=== PATIENT | female | born 1945 | race Caucasian/White ===

== ENCOUNTER → 2020-08-27 01:31 | Outpatient (CLI) | payer MEDICARE, SELFPAY ==
[2020-08-28 14:52] LABS: SARS-CoV-2 RNA PCR Negative
== END ==
PROVIDERS: PCP Internal Medicine; Visit Provider Internal Medicine Gastroenterology
DX: Z01.812 Encounter for preprocedural laboratory examination (principal); Z20.822 Contact with and (suspected) exposure to COVID-19
CPT/HCPCS: C9803; U0003; U0005

== ENCOUNTER 2020-08-30 02:49 | Day surgery (SDC) | payer MEDICARE, SELFPAY ==
[2020-08-19 14:08] VITALS: BMI 24.9
[2020-08-30 08:20] VITALS: BP 138/83; PULSE 88; RESP 16; TEMP 36.2; O2SAT 100; BMI 23.6
--- NOTE | 2020-08-30 08:26 | P.PNAN_ITS ---
Anes - Initial Pre Proc Eval Procedure: Operation Date: 08/30/20 09:45 Proposed Procedures p Colonoscopy - Rui Cohen MD Date/Time: 08/30/20 08:26 Surgeon: Rui Cohen MD Pre Op Diagnosis: positive cologuard Patient Data Age: 75 Gender: F Height: 1.63 m Weight: 62.3 kg Last Vital Signs Temp 36.2 C L 08/30/20 08:20 Pulse 88 08/30/20 08:20 Resp 16 08/30/20 08:20 BP 138/83 08/30/20 08:20 Pulse Ox 100 08/30/20 08:20 Allergies Allergy/AdvReac Type Severity Reaction Status Date / Time No Known Allergies Allergy Verified 08/30/20 08:18 Home Medications Medication Instructions Recorded Confirmed Type aspirin [Adult Aspirin] 81 mg PO DAILY 08/19/20 08/30/20 History clopidogrel [Plavix] 75 mg PO DAILY 08/19/20 08/30/20 History ezetimibe [Zetia] 10 mg PO DAILY 08/19/20 08/30/20 History nifedipine 30 mg PO DAILY 08/19/20 08/30/20 History Patient hx anesthesia problems: none Family hx anesthesia problems: none FORMERLY [facility], [facility] Past Medical History Medical History (Updated 08/30/20 @ 08:26 by Madi Alexis DO) CAD (coronary artery disease) Hypertension Surgical History Surgical History (Updated 08/29/20 @ 10:04 by Madi Alexis DO) History of coronary artery stent placement x2 History of hysterectomy Social History Social History Smoking packs per day: 1 Smoking cigarettes per day: 20.0 Years smoked: 56 Smoking pack-years: 56.00 Smoking status: Former smoker Tobacco type: cigarettes Substance use type: does not use Living arrangements: with family Gender identity (if verbalized by the patient): Female Spiritual care concerns: No Anes - Eval Final PreProcedure Day of Procedure 08/30/20 08:26 Patient weight: normal Heart: regular rate and rhythm Lungs: clear to auscultation and normal air movement Airway: Mallampati scale class 1 Neurological: alert and oriented Last oral intake: >/= 8 hours ASA classification: III Emergent: no Anesthetic plan: proceed Anesthesia type and monitoring: general GIVS and standard monitoring Informed Consent: The patient's anesthetic plan and its attendant risks and benefits were discussed with the patient/family/POA. Questions were solicited and answers provided to the satisfaction of the patient/family/POA.
[2020-08-30] MEDS: LACTATED RINGERS 1,000 ML 150 ML IV CONT (08:39)
--- NOTE | 2020-08-30 08:54 | WPDGICN ---
Assessment and Plan Assessment and plan (1) Positive colorectal cancer screening using Cologuard test: Code(s): R19.5 - Other fecal abnormalities Status: Acute Assessment and Plan: Because of positive cologuard test colonoscopy will be performed today. Patient has no specific GI symptoms reported. GI Consult Note Consult date/time: 08/30/20 08:54 HPI: Anu Garg is a 75 year old female Presents for screening colonoscopy. Patient recently had positive screening cologuard test. she states that her weight appetite bowel movements are normal. She denies abdominal pain. She has had no bleeding. Family history is noncontributory. She presents today for screening colonoscopy. Review of Systems Review of Systems: All systems reviewed & are unremarkable except as noted in HPI and below PMFSH Past Medical History Medical History (Updated 08/30/20 @ 08:55 by Rui Cohen MD) CAD (coronary artery disease) Hypertension Surgical History Surgical History (Updated 08/29/20 @ 10:04 by Madi Alexis DO) History of coronary artery stent placement x2 History of hysterectomy Social History Social History Smoking packs per day: 1 Smoking cigarettes per day: 20.0 Years smoked: 56 Smoking pack-years: 56.00 Smoking status: Former smoker Tobacco type: cigarettes Substance use type: does not use Living arrangements: with family Gender identity (if verbalized by the patient): Female Spiritual care concerns: No Meds Home Medications and Allergies Home Medications Medication Instructions Recorded Confirmed Type aspirin [Adult Aspirin] 81 mg PO DAILY 08/19/20 08/30/20 History clopidogrel [Plavix] 75 mg PO DAILY 08/19/20 08/30/20 History ezetimibe [Zetia] 10 mg PO DAILY 08/19/20 08/30/20 History nifedipine 30 mg PO DAILY 08/19/20 08/30/20 History Allergies Allergy/AdvReac Type Severity Reaction Status Date / Time No Known Allergies Allergy Verified 08/30/20 08:18 Vital Signs Vital Signs - 24 hr 08/30/20 08:20 Temperature 97.2 F L Pulse Rate 88 Respiratory Rate 16 Blood Pressure 138/83 Pulse Oximetry 100 Exam Narrative: Exam Narrative: Physical exam reveals patient be alert. Vital signs stable. HE EENT exam is unremarkable lungs are clear to auscultation and percussion. Heart is without murmur or extra sounds. Abdominal exam bowel sounds present soft nontender with no hepatosplenomegaly. Digital external rectal exam is normal.
[2020-08-30 09:24] VITALS: BP 84/37; PULSE 67; RESP 18; O2SAT 99
[2020-08-30 09:34] VITALS: BP 84/37; PULSE 62; RESP 17; O2SAT 99
[2020-08-30 09:44] VITALS: BP 89/62; RESP 23; O2SAT 100
== END 2020-08-30 10:00 | disposition home or self-care (01) ==
PROVIDERS: PCP Internal Medicine; Visit Provider Internal Medicine Gastroenterology
PROC: 0DJD8ZZ Inspection of Lower Intestinal Tract, Via Natural or Artificial Opening Endoscopic (ICD-10-PCS; CPT 45378; principal; 2020-08-30 09:45)
DX: Z12.11 Encounter for screening for malignant neoplasm of colon (principal); D12.2 Benign neoplasm of ascending colon; K63.5 Polyp of colon; K57.30 Diverticulosis of large intestine without perforation or abscess without bleeding; K64.8 Other hemorrhoids; R19.5 Other fecal abnormalities; I10 Essential (primary) hypertension; I25.10 Atherosclerotic heart disease of native coronary artery without angina pectoris; Z95.5 Presence of coronary angioplasty implant and graft; Z87.891 Personal history of nicotine dependence; Z79.02 Long term (current) use of antithrombotics/antiplatelets; Z79.82 Long term (current) use of aspirin
CPT/HCPCS: 45385; 88305; J2704; J7120

== ENCOUNTER 2023-01-14 11:09 | Outpatient (CLI) | payer MEDICARE, SELFPAY ==
[2023-01-14 11:41] LABS: Basophils Percent Auto 0.5 % (0.2-1.2); Eosinophils Absolute Auto 0.1 K/mm3 (0-0.3); Eosinophils Percent Auto 0.9 % (0-4.4); Hematocrit 34.9 % (37.0-47.0); Hemoglobin 10.9 g/dL (12.0-15.0); Immature Granulocyte Absolute 0.01 K/mm3 (0.00-0.031); Immature Granulocyte Percent A 0.1 % (0-0.5); Immature Reticulocyte Fraction 6.7 % (3.0-15.9); Lymphocytes Absolute Auto 1.01 K/mm3 (0.9-3.2); Lymphocytes Percent Auto 12.3 % (18.3-44.2); Mean Corpuscular HGB Conc 31.2 g/dl (32-36); Mean Corpuscular Hemoglobin 25.3 pg (26-34); Mean Corpuscular Volume 81.2 fl (80-100); Mean Platelet Volume 9.4 fl (7.4-10.4); Monocytes Absolute Auto 0.6 K/mm3 (0.1-0.6); Monocytes Percent Auto 6.7 % (2.6-8.5); Neutrophils Absolute Auto 6.5 K/mm3 (1.3-6.7); Neutrophils Percent Auto 79.5 % (45.5-73.1); Platelet Count Result 365 k/mm3 (150-375); Red Cell Distribution Width 15.8 % (11.5-14.5); Reticulocyte Hemoglobin Conten 28.4 pg (28.2-35.7); Reticulocyte Percent 0.79 % (0.7-4.3); Reticulocytes Absolute 0.03 M/mm3 (0.02-0.1); White Blood Count 8.2 K/mm3 (4.5-10.0)
[2023-01-14 12:08] LABS: Anion Gap 6 mmol/L (8-16); Blood Urea Nitrogen 16 mg/dL (7-17); Carbon Dioxide 32 mmol/L (22-30); Chloride 96 mmol/L (98-107); Potassium 3.6 mmol/L (3.4-5.0); Sodium 134 mmol/L (137-145)
[2023-01-14 12:09] LABS: Alanine Aminotransferase 16 U/L (6-35); Albumin Level 4.5 g/dL (3.5-5.1); Alkaline Phosphatase 75 U/L (38-126); Aspartate Amino Transferase 22 U/L (14-36); Bilirubin,Total 0.4 mg/dL (0.2-1.3); Calcium 8.8 mg/dL (8.4-10.2); Estimated Glomerular Filt Rate 54; Glucose 118 mg/dL (65-110)
[2023-01-14 13:20] LABS: Folic Acid > 20.0 ng/mL (2.76->20)
[2023-01-14 16:30] LABS: Iron 44 ug/dL (37-170)
[2023-01-14 16:40] LABS: Percent Iron Saturation 13 % (20-50)
[2023-01-16 15:58] LABS: Albumin 3.9 g/dL (3.8-4.8); Alpha 1 Globulin 0.5 g/dL (0.2-0.3); Alpha 2 Globulin 1.1 g/dL (0.5-0.9); Beta 1 Globulin 0.5 g/dL (0.4-0.6); Gamma Globulin 1.2 g/dL (0.8-1.7); Protein, Total 7.5 g/dL (6.1-8.1)
[2023-01-17 06:01] LABS: Methylmalonic Acid 262 nmol/L (87-318)
[2023-01-18 17:46] LABS: Soluble Transferrin Receptor 1.46 mg/L (0.76-1.76)
== END 2023-01-14 11:10 | disposition home or self-care (01) ==
PROVIDERS: PCP Internal Medicine; Visit Provider Internal Medicine Hematology & Oncology
DX: D64.9 Anemia, unspecified (principal)
CPT/HCPCS: 36415; 80053; 82607; 82728; 82746; 83540; 83550; 83921; 84155; 84165; 84238; 85025; 85046

== ENCOUNTER 2023-05-08 10:42 | Outpatient (CLI) | payer MEDICARE, SELFPAY ==
[2023-05-08 10:56] LABS: Basophils Percent Auto 0.6 % (0.2-1.2); Eosinophils Absolute Auto 0.1 K/mm3 (0-0.3); Eosinophils Percent Auto 1.8 % (0-4.4); Hematocrit 36.6 % (37.0-47.0); Immature Granulocyte Absolute 0.01 K/mm3 (0.00-0.031); Immature Granulocyte Percent A 0.1 % (0-0.5); Mean Corpuscular HGB Conc 32.8 g/dl (32-36); Mean Corpuscular Hemoglobin 29.6 pg (26-34); Mean Corpuscular Volume 90.1 fl (80-100); Mean Platelet Volume 9.1 fl (7.4-10.4); Monocytes Absolute Auto 0.6 K/mm3 (0.1-0.6); Monocytes Percent Auto 9.2 % (2.6-8.5); Neutrophils Absolute Auto 4.5 K/mm3 (1.3-6.7); Neutrophils Percent Auto 66.3 % (45.5-73.1); Platelet Count Result 241 k/mm3 (150-375); Red Blood Count 4.06 M/mm3 (4.2-5.4); Red Cell Distribution Width 15.2 % (11.5-14.5); White Blood Count 6.8 K/mm3 (4.5-10.0)
[2023-05-08 16:48] LABS: Iron 80 ug/dL (37-170)
[2023-05-08 17:10] LABS: Percent Iron Saturation 26 % (20-50)
== END 2023-05-08 10:43 | disposition home or self-care (01) ==
LOC: ANHLAB 10:44
PROVIDERS: PCP Internal Medicine; Visit Provider Internal Medicine Hematology & Oncology
DX: D64.9 Anemia, unspecified (principal)
CPT/HCPCS: 36415; 82728; 83540; 83550; 85025

== ENCOUNTER 2023-09-12 03:32 | Inpatient (IN) | payer MEDICARE, SELFPAY ==
[2023-09-12] VITALS (51 sets, daily range): BP systolic 68–117; BP diastolic 41–80; PULSE 71–125; RESP 12–36; TEMP 35.5–36.7; O2SAT 82–100; BMI 23.8
--- NOTE | 2023-09-12 | ECHO_ITS ---
Patient Info Name: Anu Garg Age: 78 years : 1945 Gender: Female Ht: 64 in Wt: 129 lbs BSA: 1.63 m2 HR: 88 bpm BP: 98 / 67 mmHg Heart Rhythm: Sinus Rhythm Technical Quality: Good Exam Date: 09/12/2023 9:45 AM Exam Location: Echo Lab Patient Status: Inpatient Admit Date: 09/12/2023 Staff Ordering Physician: Fareed Thapa MD Lead Clinical Research Coordinator: Kirill Stern RDCS Attending Provider: Fareed Thapa MD Exam Type: CA echo dop color flow w con Study Info Indications - chf Complete two-dimensional, color flow and Doppler transthoracic echocardiogram is performed with contrast to opacify the left ventricle and to improve the deliniation of the left ventricle endocardial borders. Contrast/Agitated Saline Contrast/Ag. Saline: Definity Amount: 4.00 ml IV Access Condition: patent with no signs of infiltration Summary 1. Left ventricular chamber dimension is normal. 2. Left ventricular systolic function is moderately reduced, estimated at 30-35%. 3. The left ventricular diastolic function is grade I diastolic dysfunction. 4. Right ventricular systolic function is normal. 5. There is moderate mitral valve regurgitation. 6. There is trivial pericardial effusion. Left Ventricle Left ventricular chamber dimension is normal. Left ventricular systolic function is moderately reduced, estimated at 30-35%. There is no increased left ventricular wall thickness. The left ventricular diastolic function is grade I diastolic dysfunction. Right Ventricle Right ventricular chamber dimension is normal. Right ventricular systolic function is normal. Left Atria Left atrial chamber dimension is normal. Right Atria Right atrial chamber dimension is normal. Atrial Septum Intact interatrial septum visualized by color flow imaging. Aortic Valve The aortic valve is not well visualized. There is no aortic valve stenosis. There is no aortic valve regurgitation. There is mild aortic valve calcification. Pulmonic Valve The pulmonic valve is not well visualized. Mitral Valve There is moderate mitral valve regurgitation. Tricuspid Valve There is trace tricuspid valve regurgitation. Pericardium/Pleural There is trivial pericardial effusion. Inferior Vena Cava Normal inferior vena cava with >50% collapse upon inspiration consistent with normal right atrial pressure, 3 mmHg. Aorta The aortic root size at the sinus of Valsalva is normal. Left Ventricular Outflow Tract Name Value Normal LVOT 2D LVOT Diameter 2.00 cm LVOT Doppler LVOT Peak Gradient 6 mmHg LVOT Mean Gradient 3 mmHg LVOT VTI 19.74 cm LVOT VTI/AV VTI Ratio 0.99 LVOT Stroke Volume 61.94 ml LVOT CO 5.79 l/min LVOT CI 3.55 L/min/m2 Pulmonic Valve Name Value Normal PV Doppler
--- NOTE | ~2023-09-12 | XR_ITS ---
Portable chest x-ray Comparison: None Clinical History: Shortness of breath Findings: There is mild haziness and interstitial prominence in the lungs, worse at the right lung b ase. Calcified left upper lobe granuloma present. Cardiomediastinal silhouette is unremarkable. Bone s and soft tissues are unremarkable. Impression: Probable mild alveolar and interstitial pulmonary edema. Correlate for COPD and/or other chronic inte rstitial disease. Reviewed, dictated and finalized at location . Impression: Probable mild alveolar and interstitial pulmonary edema. Correlate for COPD and /or other chronic interstitial disease.
--- NOTE | ~2023-09-12 | US_ITS ---
Renal-Bladder ultrasound Clinical History: Elevated creatinine Technique: Real-time sonographic imaging of the kidneys and urinary bladder was performed. Findings: The right kidney measures 7.9 cm in length and the left kidney measures 7.2 cm. There is no hydronephrosis or renal calculus identified. Renal cortical echogenicity is within normal limits. No renal mass lesion is identified. The urinary bladder is moderately distended at the time of this exam. No intraluminal echoes are iden tified. No abnormal wall thickening is seen. Bladder volume is 251 mL. Bilateral pleural effusions are noted. Impression: Unremarkable ultrasound of the kidneys and urinary bladder. Bilateral pleural effusions noted. Reviewed, dictated and finalized at location . Impression: Unremarkable ultrasound of the kidneys and urinary bladder. Bilateral pleural effusions noted.
--- NOTE | ~2023-09-12 | XR_ITS ---
Portable chest x-ray Comparison: 09/12/2023 Clinical History: Shortness of breath Findings: There is mild bilateral pulmonary edema pattern. No definite pleural effusion. Cardiomedi astinal silhouette is stable. Bones and soft tissues are unremarkable. Impression: Mild probable bilateral pulmonary edema pattern. Correlate for infection. Reviewed, dictated and finalized at [facility]. Impression: Mild probable bilateral pulmonary edema pattern. Correlate for infection.
--- NOTE | ~2023-09-12 | XR_ITS ---
EXAMINATION: XR chest 1V portable DATE: 09/14/2023 08:40 INDICATION: Chest pain. Shortness of breath. Cough. TECHNIQUE: A single frontal view of the chest was obtained. COMPARISON: Chest single view 09/13/2023, 09/12/23 FINDINGS: A calcified left lung nodule and calcified left hilar lymph nodes are consistent with old g ranulomatous disease. There is a diffuse interstitial pattern in the lungs. There are airspace opacit ies in the perihilar regions. No pleural effusion or pneumothorax. The heart size is normal. IMPRESSION: 1. Worsening diffuse lung disease, likely moderate pulmonary edema. Superimposed pneumonia cannot be excluded. Reviewed, dictated and finalized at location A. IMPRESSION: 1. Worsening diffuse lung disease, likely moderate pulmonary edema. Superimpose d pneumonia cannot be excluded.
--- NOTE | 2023-09-12 03:33 | ECG_ITS ---
SEE SCANNED COPY FOR CONFIRMED REPORT MTDD
[2023-09-12 03:54] LABS: Basophils Absolute Auto 0.1 K/mm3 (0.0-0.1); Basophils Percent Auto 0.5 % (0.2-1.2); Eosinophils Absolute Auto 0.1 K/mm3 (0-0.3); Eosinophils Percent Auto 0.9 % (0-4.4); Hematocrit 37.2 % (37.0-47.0); Hemoglobin 12.4 g/dL (12.0-15.0); Immature Granulocyte Absolute 0.05 K/mm3 (0.00-0.031); Immature Granulocyte Percent A 0.4 % (0-0.5); Lymphocytes Absolute Auto 2.12 K/mm3 (0.9-3.2); Lymphocytes Percent Auto 18.9 % (18.3-44.2); Mean Corpuscular HGB Conc 33.3 g/dl (32-36); Mean Corpuscular Hemoglobin 30.7 pg (26-34); Mean Corpuscular Volume 92.1 fl (80-100); Mean Platelet Volume 10.1 fl (7.4-10.4); Monocytes Absolute Auto 0.9 K/mm3 (0.1-0.6); Monocytes Percent Auto 7.6 % (2.6-8.5); Neutrophils Absolute Auto 8.1 K/mm3 (1.3-6.7); Neutrophils Percent Auto 71.7 % (45.5-73.1); Platelet Count Result 308 k/mm3 (150-375); Red Blood Count 4.04 M/mm3 (4.2-5.4); Red Cell Distribution Width 13.3 % (11.5-14.5); White Blood Count 11.2 K/mm3 (4.5-10.0)
--- NOTE | 2023-09-12 03:54 | ED.GENADULT ---
HPI - General Adult General Chief complaint: Shortness of Breath/Dyspnea Stated complaint: SOB Time Seen by Provider: 09/12/23 03:53 History of Present Illness HPI narrative: Patient is a 78-year-old female who presents to the emergency department this evening complaining of shortness of breath. Patient states that she woke up sleep and was short of breath. When patient went to bed earlier this evening, she was feeling. Patient admits that she has been suffering from a cough for the past week productive of sputum. Denies any fevers or chills at home. She denies any chest pain, nausea vomiting, any abdominal pain or any urinary symptoms. Patient denies any history of asthma or COPD, denies any history of CHF and denies any sick contacts at home. No additional symptoms or concerns at this time. Related Data Home Medications Medication Instructions Recorded Confirmed aspirin 81 mg tablet 81 mg PO DAILY 08/19/20 09/12/23 clopidogrel 75 mg tablet (Plavix) 75 mg PO DAILY 08/19/20 09/12/23 ezetimibe 10 mg tablet (Zetia) 10 mg PO DAILY 08/19/20 09/12/23 nifedipine 30 mg tablet,extended 30 mg PO DAILY 08/19/20 09/12/23 release buspirone 5 mg tablet 2 mg PO QAM AND QHS 09/12/23 09/12/23 ergocalciferol (vitamin D2) 1,250 09/12/23 mcg (50,000 unit) capsule famotidine 20 mg tablet 20 mg PO DAILY 09/12/23 09/12/23 Allergies Allergy/AdvReac Type Severity Reaction Status Date / Time [id number] Reductase Allergy Rash Verified 09/12/23 03:50 Inhibitor Review of Systems Review of Systems: All systems are reviewed and are negative unless stated otherwise in the HPI. [facility] Past Medical History Medical History (Updated 09/12/23 @ 06:15 by Fareed Thapa MD) CAD (coronary artery disease) Hypertension Surgical History Surgical History History of coronary artery stent placement x2 History of hysterectomy Social History Social History Smoking packs per day: 1 Smoking cigarettes per day: 20.0 Years smoked: 56 Smoking pack-years: 56.00 Smoking status: Former smoker Tobacco type: cigarettes Substance use type: does not use Living arrangements: with family Gender identity (if verbalized by the patient): Female Spiritual care concerns: No Exam Narrative: General: Alert, awake, afebrile, in no acute distress. HEENT: PERRL, no rhinorrhea, no post nasal drip, oropharynx clear. Neck: Trachea midline, no JVD, no lymphadenopathy. Cardiovascular: Regular rate and rhythm, no murmurs, rubs or gallops, no peripheral edema. Respiratory: Diffuse bilateral expiratory wheezing, no wheezing, no rhonchi, no rubs, no respiratory distress. Abdomen: Soft, nontender, nondistended, no rebound, no guarding, no peritoneal signs. Musculoskeletal: No joint swelling or deformity, normal muscle tone. Skin: No rashes or petechia, no signs of infection. Neurological: Alert and oriented to person, place, and time. Follows all commands. No focal deficits, speech is clear and fluent. Course Vital Signs Vital signs: Vital Signs Temperature 97.5 F L 09/12/23 03:33 Pulse Rate 94 09/12/23 03:33 Respiratory Rate 19 09/12/23 03:33 Blood Pressure 96/55 L 09/12/23 03:33 Pulse Oximetry 95 09/12/23 03:33 Oxygen Delivery Room Air 09/12/23 03:33 Temperature 97.5 F L 09/12/23 03:33 Pulse Rate 88 09/12/23 05:52 Respiratory Rate 15 09/12/23 05:52 Blood Pressure 98/67 L 09/12/23 05:52 Pulse Oximetry 99 09/12/23 05:52 Oxygen Delivery Nasal Cannula 09/12/23 04:19 Oxygen Flow Rate 3 09/12/23 04:19 Medical Decision Making MDM Narrative Medical decision making narrative: The patient was evaluated by myself in the emergency department. History is obtained from patient who is an independent historian and physical exam was performed. External medical records were reviewe
[2023-09-12] MEDS: IPRATROPIUM 0.5 MG/ALBUTEROL SULFATE 2.5 MG AMPUL.NEB 3 ML INHALATION (04:06)
[2023-09-12 04:35] LABS: Lactic Acid Reflex 1.2 mmol/L (0.7-2.0)
[2023-09-12 04:40] LABS: NT Pro B Type Natriuretic Pept 7040 pg/mL (19.9-100)
[2023-09-12 05:19] LABS: Troponin I 0.792 ng/mL (0.000-0.034)
[2023-09-12 05:29] LABS: Influenza A QL RT-PCR Negative (Negative); Influenza B QL RT-PCR Negative (Negative); RSV RNA, RT-PCR Negative (Negative); SARS-CoV-2 RNA PCR Negative (Negative)
[2023-09-12 05:41] LABS: Alanine Aminotransferase 17 U/L (6-35); Albumin Level 4.1 g/dL (3.5-5.1); Alkaline Phosphatase 71 U/L (38-126); Anion Gap 7 mmol/L (4-12); Aspartate Amino Transferase 31 U/L (14-36); Bilirubin,Total 0.5 mg/dL (0.2-1.3); Blood Urea Nitrogen 19 mg/dL (7-17); Calcium 8.6 mg/dL (8.4-10.2); Carbon Dioxide 27 mmol/L (22-30); Chloride 100 mmol/L (98-107); Estimated CRCL calculation 31 ml/min; Estimated Glomerular Filt Rate 44; Glucose 118 mg/dL (65-110); Potassium 4.5 mmol/L (3.4-5.0); Sodium 134 mmol/L (137-145)
[2023-09-12] MEDS: AZITHROMYCIN 500 MG/NS 250 ML 500 MG/250 ML BAG 250 MG IVPB (05:52)
--- NOTE | 2023-09-12 06:14 | PM.IMHP ---
H&P: HPI History of Present Illness Date/Time: 09/12/23 06:14 Chief Complaint: sob cough Narrative: patient is 78-year-old female with history of Chronic bronchitis/ CAD / hypertension comes to the hospital complaining of shortness of breath productive cough yellow-green phlegm. Patient states she had not been very mobile the last few days denies any history of hemoptysis no chest pain no vomiting no diarrhea . Patient does have history of smoking but states she has never been diagnosed with COPD. Patient appears comfortable right now except dry cough. Patient was also seen and evaluated her initial diagnosis of possible now use and heart failure started on Rocephin Zithromax. 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 [place] Review of Systems Review of Systems: All systems reviewed & are unremarkable except as noted in HPI and below PMFSH Past Medical History Medical History (Updated 09/12/23 @ 06:15 by Fareed Thapa MD) CAD (coronary artery disease) Hypertension Surgical History Surgical History History of coronary artery stent placement x2 History of hysterectomy Social History Social History Smoking packs per day: 1 Smoking cigarettes per day: 20.0 Years smoked: 56 Smoking pack-years: 56.00 Smoking status: Former smoker Tobacco type: cigarettes Substance use type: does not use Living arrangements: with family Gender identity (if verbalized by the patient): Female Spiritual care concerns: No Meds Home Medications and Allergies Home Medications Medication Instructions Recorded Confirmed Type aspirin 81 mg tablet 81 mg PO DAILY 08/19/20 09/12/23 History clopidogrel 75 mg tablet (Plavix) 75 mg PO DAILY 08/19/20 09/12/23 History ezetimibe 10 mg tablet (Zetia) 10 mg PO DAILY 08/19/20 09/12/23 History nifedipine 30 mg tablet,extended 30 mg PO DAILY 08/19/20 09/12/23 History release buspirone 5 mg tablet 2 mg PO QAM AND QHS 09/12/23 09/12/23 History ergocalciferol (vitamin D2) 1,250 09/12/23 History mcg (50,000 unit) capsule famotidine 20 mg tablet 20 mg PO DAILY 09/12/23 09/12/23 History Allergies Allergy/AdvReac Type Severity Reaction Status Date / Time Qolfusa-[id number] Reductase Allergy Rash Verified 09/12/23 03:50 Inhibitor Vital Signs Vital Signs - 24 hr 09/12/23 03:33 09/12/23 03:38 09/12/23 03:44 Temperature 36.4 C L Pulse Rate 94 Respiratory Rate 19 Blood Pressure 96/55 L Pulse Oximetry 95 95 94 Oxygen Delivery Room Air Nasal Cannula Nasal Cannula Oxygen Flow Rate 3 3 09/12/23 03:49 09/12/23 03:50 09/12/23 04:08 Temperature Pulse Rate 84 79 Respiratory Rate 16 Blood Pressure Pulse Oximetry 97 Oxygen Delivery Non-Rebreather Mask Oxygen Flow Rate 10 09/12/23 04:14 09/12/23 04:19 09/12/23 04:19 Temperature Pulse Rate 81 80 Respiratory Rate 14 16 Blood Pressure 96/66 L Pulse Oximetry 100 100 Oxygen Delivery Nasal Cannula Oxygen Flow Rate 3 09/12/23 05:52 Temperature Pulse Rate 88 Respiratory Rate 15 Blood Pressure 98/67 L Pulse Oximetry 99 Oxygen Delivery Oxygen Flow Rate Exam Narrative: GENERAL: Well appearing, no acute distress. HEAD: Normocephalic, atraumatic. NECK: Supple. No adenopathy, no masses. RESPIRATORY: respirations nonlabored. , has rales, wheezing. CARDIOVASCULAR: Regular rate and rhythm without murmurs, . Peripheral pulses 2+ and equal bilaterally. ABDOMINAL: Soft, nontender, nondistended, no hepatosplenomegaly. Normoactive BS. MUSCULOSKELETAL: no Epigastric and no hypochondrial tenderness SKIN: Warm, dry, NEURO: A&O X3. Moves all extremities H&P: Results Labs Labs: Short CBC 09/12/23 Range/Units 03:48 WBC 11.2 H (4.5-10.0) K/mm3 Hgb 12.4
--- NOTE | 2023-09-12 06:47 | PC.NURSE ---
EDP Dr. York made aware of pt low bp readings. EDP instructed this RN to feed pt and reevaluate. Pt feeling nauseated at this time. EDP to put orders for zofran in.
[2023-09-12] MEDS: ONDANSETRON INJ 4 MG/2 ML VIAL IV PUSH (06:52)
--- NOTE | 2023-09-12 07:03 | PC.NURSE ---
This RN called EDP to room for pt low o2 saturations and low bp readings. Pt bp reading 70s/50s. This RN placed pt back on NRB at 10L as pt was 87%on 5L NC. EDP stated she would put in maintenance fluids and additional orders.
[2023-09-12] MEDS: methylPREDNISolone SOD SUCC 40 MG VIAL IV PUSH ×3 (07:08→21:17)
[2023-09-12] MEDS: SODIUM CHLORIDE 0.9% IV 250 ML IV CONT (07:10)
--- NOTE | 2023-09-12 07:11 | PC.NURSE ---
bssr given to dayna esparza at this time. pt on NRB and has fluids infusing at this time. call light within reach and family at bedside.
--- NOTE | 2023-09-12 07:52 | ADMGEN ---
This patient, Anu Garg, was admitted to IMU Room 203-01. Patient/family oriented to hospital policies and general routines including ID bracelet, bed and alarms, visiting hours, pain management, procedures, bathroom and other care routines, personal items, smoking policy, room service/diet, and visiting hours. Information on how to activate the Rapid Response Team has been discussed. Patient/Family are encouraged to report perceived risks to care and to ask questions if they do not understand what they are told or what they should do.
[2023-09-12] MEDS: PERFLUTREN LIPID MICROSPHERES 1.5 ML VIAL DILUTED TO 10 ML TOTAL VOLUME IV PUSH (10:22)
--- NOTE | 2023-09-12 10:22 | IVDEFINITY ---
Prior to administration of IV Definity the patient was educated on the risks and benefits of the imaging enhancing agent including potential adverse side effects. The patient verbalized understanding. Allergies were verified. No exclusion criteria were identified and at least one of the following inclusion criteria were met: 1) physician request, 2) patient technically difficult to image (per the [place] [employer]ocardi[employer] guidelines of two or more segments not discernable within the apical view), or 3) questionable left ventricular function. ?
--- NOTE | 2023-09-12 10:37 | PM.CNCAR ---
Assessment and Plan Assessment and plan (1) Acute hypoxic respiratory failure: Code(s): J96.01 - Acute respiratory failure with hypoxia Status: Acute Assessment and Plan: On BIPAP, wean oxygen as tolerated. (2) Acute pneumonia: Code(s): J18.9 - Pneumonia, unspecified organism Status: Acute Assessment and Plan: On antibiotics as per Hospitalist. (3) Congestive heart failure: Code(s): I50.9 - Heart failure, unspecified Status: Acute Assessment and Plan: We do not have any prior cardiac records, however, patient and family deny any history of heart failure. Please obtain records from [facility]. Echocardiogram ordered and pending. Agree with IV Lasix this morning, will give additional doses as needed. (4) Elevated troponin: Code(s): R79.89 - Other specified abnormal findings of blood chemistry Status: Acute Assessment and Plan: Mildly elevated. In the setting of acute hypoxic respirator failure, hypotension, possible CHF. Likely demand ischemia. Does not appear to be ACS, however, will trend troponins. Echocardiogram ordered and pending. (5) CAD (coronary artery disease): Code(s): I25.10 - Atherosclerotic heart disease of [place] coronary artery without angina pectoris Status: Acute Assessment and Plan: Continue ASA, Plavix. Please obtain records from Dr. Yee's office. History of Present Illness History of Present Illness Consult date/time: 09/12/23 10:37 Requesting physician: Sylvain York MD Consult reason: Other (Pulmonary edema, NSTEMI) Reason For Visit: Pulmonary Edema, STEMI Narrative: This is a 78 year old female with coronary artery disease s/p stents 5-6 years ago, hypertension, tobacco dependence who presented with shortness of breath. Patient states she woke up with shortness of breath. Has been having a cough with productive sputum over the past few days. Endorses orthopnea over the past four days as well. No chest pain. 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 In the ER, she was noted to be in acute hypoxic respiratory failure and placed on supplemental oxygen via nasal cannula with improvement. Was noted to be hypotensive, received IVF. This morning, patient had respiratory distress, and was placed on BIPAP, given IV Lasix, and Solumedrol with improvement. She feels better now at the time of my evaluation. Of note, patient smokes 1/2PPD for the past 56 years. Has not been diagnosed with COPD yet. Workup shows: WBC 11.2 SCr of 0.792 NT pro BNP of 7,040 TSH is elevated at 14.3. CXR with mild alveolar and interstitial pulmonary edema. EKG shows sinus rhythm with nonspecific STTW abnormalities. No prior EKG available for comparison. Review of Systems Review of Systems: All systems reviewed & are unremarkable except as noted in HPI and below (HPI) [facility] Past Medical History Medical History CAD (coronary artery disease) Hypertension Surgical History Surgical History History of coronary artery stent placement x2 History of hysterectomy Social History Social History Smoking packs per day: 1 Smoking cigarettes per day: 20.0 Years smoked: 56 Smoking pack-years: 56.00 Smoking status: Former smoker Tobacco type: cigarettes Substance use type: does not use Living arrangements: with family Gender identity (if verbalized by the patient): Female Spiritual care concerns: No Meds Home Medications and Allergies Home Medications Medication Instructions Recorded Confirmed Type aspirin 81 mg tablet 81 mg PO DAILY 08/19/20 09/12/23 History clopidogrel 75 mg tablet (Plavix) 75 mg PO DAILY 08/19/20 09/12/23 History ezetimibe 10 mg tablet (Zetia) 10 mg PO DAILY 08/19/20 09/12/23 History nifedipine 30 mg tablet,extended 30 mg PO DAILY
[2023-09-12 10:48] LABS: Free T4 Free Thyroxine Reflex 1.13 ng/dL (0.78-2.19)
[2023-09-12] MEDS: ENOXAPARIN 40 MG/0.4 ML SYRINGE SUB-Q (10:53)
[2023-09-12] MEDS: methylPREDNISolone SOD SUCC 125 MG VIAL IV PUSH (10:58)
[2023-09-12] MEDS: FUROSEMIDE INJ 40 MG/4 ML VIAL IV PUSH (10:59)
[2023-09-12] MEDS: PANTOPRAZOLE 40 MG TABLET PO (11:00)
--- NOTE | 2023-09-12 11:30 | PCOTNOTE ---
Pt with uptrending troponin at this time. Will hold therapy until more medically approrpiate.
[2023-09-12 11:43] LABS: Total Triiodothyronine (T3) 1.37 NG/ML (0.97-1.69)
--- NOTE | 2023-09-12 12:19 | PM.IMPN ---
Progress Note: A&P Assessment and Plan (1) Congestive heart failure: Code(s): I50.9 - Heart failure, unspecified Status: Acute (2) Acute pneumonia: Code(s): J18.9 - Pneumonia, unspecified organism Status: Acute (3) CAD (coronary artery disease): Code(s): I25.10 - Atherosclerotic heart disease of [place] coronary artery without angina pectoris Status: Acute Plan Acute hypoxic respiratory failure: Respiratory distress This a.m. likely due to pneumonia versus CHF versus COPD exacerbation. Placed on BiPAPFor work of breathing. DuoNeb. Solu-Medrol for COPD exacerbation. Diuresis with Lasix Acute on chronic CHF exacerbation chest x-ray with interstitial edema noted. We will start diuresis with Lasix one-time dose. Diuresis as tolerated. Was hypotensive on admission. BNP of 7000 Hypotension: Lactate was normal. Currently treated for underlying infection particularly with pneumonia Bilateral pneumonia: Ceftriaxone and azithromycin will be continued blood culture were obtained.Cold flu and RSV negative Elevated troponin could be related to ongoing hypoxia CHF possible non-ST elevation [place]. Could be demand ischemia due to poor. Cardiology has been consulted. History of coronary artery disease status post stent to the past COPD undiagnosed prior but long-term history and chest x-ray finding suggestive of this. Possible COPD exacerbation treated with Solu Medrol CKD stage III creatinine 1.2 continue to monitor with diuresis. History of anxiety disorder continue buspirone GERD Hyperlipidemia DVT prophylaxis Lovenox history of hypertension. History of anxiety continue buspirone. History of gastric reflux continue amantadine. History of hyperlipidemia continue Zetia Subjective Date/time seen: 09/12/23 12:19 Interval history: Patient with respiratory distress this a.m. Pulse ox not picking up currently. Feels anxious. Still alert and oriented ?3. Family at bedside and discussed with them. Review of Systems Review of Systems: All systems reviewed & are unremarkable except as noted in HPI and below Exam Narrative: GENERAL: Well appearing, In mild to moderate distress HEAD: Normocephalic, atraumatic. NECK: Supple. No adenopathy, no masses. RESPIRATORY: Labored breathing wheezy and rhonchorous breath sounds.Bilateral rales CARDIOVASCULAR: Tachycardic sinus and telemetry . Peripheral pulses 2+ and equal bilaterally. ABDOMINAL: Soft, nontender, nondistended, no hepatosplenomegaly. Normoactive BS. MUSCULOSKELETAL: no Epigastric and no hypochondrial tenderness SKIN: Warm, dry, NEURO: A&O X3. Moves all extremities Objective Data Vital Signs Vital Signs: Vital Signs - 24 hr 09/12/23 03:33 09/12/23 03:38 09/12/23 03:44 Temperature 97.5 F L Pulse Rate 94 Respiratory Rate 19 Blood Pressure 96/55 L Pulse Oximetry 95 95 94 Oxygen Delivery Room Air Nasal Cannula Nasal Cannula Oxygen Flow Rate 3 3 09/12/23 03:49 09/12/23 03:50 09/12/23 04:08 Temperature Pulse Rate 84 79 Respiratory Rate 16 Blood Pressure Pulse Oximetry 97 Oxygen Delivery Non-Rebreather Mask Oxygen Flow Rate 10 09/12/23 04:14 09/12/23 04:19 09/12/23 04:19 Temperature Pulse Rate 81 80 Respiratory Rate 14 16 Blood Pressure 96/66 L Pulse Oximetry 100 100 Oxygen Delivery Nasal Cannula Oxygen Flow Rate 3 09/12/23 05:52 09/12/23 06:41 09/12/23 06:46 Temperature Pulse Rate 88 105 H 112 H Respiratory Rate 15 16 20 Blood Pressure 98/67 L Pulse Oximetry 99 Oxygen Delivery Oxygen Flow Rate 09/12/23 07:06 09/12/23 03:46 09/12/23 04:01 Temperature Pulse Rate 80 84 Respiratory Rate 12 17 Blood Pressure 98/63 L 94/80 L Pulse Oximetry 97 93 97 Oxygen Delivery Non-Rebreather Mask Oxygen Flow Rate 10 09/12/23 04:16 09/12/23 04:45 09/12/23 05:00 Temperature Pulse Rate 92 84 83 Respiratory Rate 22 H 22 H 21 H Blood Pressure 6
[2023-09-12] MEDS: METOPROLOL SUCCINATE EXT REL 25 MG TABCR PO (13:05)
[2023-09-12] MEDS: IPRATROPIUM BR 0.02% INH SOLN 0.5 MG/2.5 ML VIAL INHALATION ×2 (14:05→20:23)
[2023-09-12] MEDS: LEVALBUTEROL NEB 1.25 MG/3 ML INHALATION ×2 (14:05→20:23)
[2023-09-12] MEDS: WATER FOR IRRIGATION, STERILE 1,000 ML BOTTLE 1000 ML (20:18)
[2023-09-12] MEDS: busPIRone HCL 5 MG TABLET PO (21:17)
[2023-09-13] VITALS (30 sets, daily range): BP systolic 87–107; BP diastolic 46–71; PULSE 65–122; RESP 19–100; TEMP 35.8–36.7; O2SAT 23–100
[2023-09-13] MEDS: IPRATROPIUM BR 0.02% INH SOLN 0.5 MG/2.5 ML VIAL INHALATION ×4 (01:18→20:45)
[2023-09-13] MEDS: LEVALBUTEROL NEB 1.25 MG/3 ML INHALATION ×4 (01:18→20:35)
[2023-09-13 04:14] LABS: Hematocrit 34.7 % (37.0-47.0); Hemoglobin 11.2 g/dL (12.0-15.0); Mean Corpuscular HGB Conc 32.3 g/dl (32-36); Mean Corpuscular Hemoglobin 30.3 pg (26-34); Mean Corpuscular Volume 93.8 fl (80-100); Mean Platelet Volume 10.6 fl (7.4-10.4); Platelet Count Result 302 k/mm3 (150-375); Red Cell Distribution Width 13.3 % (11.5-14.5); White Blood Count 22.9 K/mm3 (4.5-10.0)
[2023-09-13 04:29] LABS: Alanine Aminotransferase 17 U/L (6-35); Albumin Level 3.6 g/dL (3.5-5.1); Alkaline Phosphatase 60 U/L (38-126); Anion Gap 7 mmol/L (4-12); Aspartate Amino Transferase 38 U/L (14-36); Bilirubin,Total 0.4 mg/dL (0.2-1.3); Blood Urea Nitrogen 28 mg/dL (7-17); Calcium 7.9 mg/dL (8.4-10.2); Carbon Dioxide 25 mmol/L (22-30); Chloride 99 mmol/L (98-107); Estimated CRCL calculation 31 ml/min; Estimated Glomerular Filt Rate 44; Glucose 134 mg/dL (65-110); Magnesium 2.3 mg/dL (1.6-2.3); Potassium 4.4 mmol/L (3.4-5.0); Sodium 131 mmol/L (137-145)
[2023-09-13] MEDS: ACETAMINOPHEN 325 MG TABLET 650 MG PO ×3 (04:35→22:00)
[2023-09-13 04:41] LABS: Band Neutrophils Percent 8 % (0-6); Lymphocytes Absolute Manual 0.68 K/mm3 (1.1-4.5); Lymphocytes Percent Manual 3 % (18-44); Monocytes Absolute Manual 0.45 K/mm3 (0.1-0.90); Monocytes Percent Manual 2 % (3-9); Neutrophils Absolute Manual 21.75 K/mm3 (1.7-7.2); Neutrophils Percent Manual 87 % (46-73); Platelet Estimate Adequate (Adequate); Total Cells Counted 100
[2023-09-13 04:42] LABS: Large Platelets Present; Schistocytes None Seen
[2023-09-13] MEDS: methylPREDNISolone SOD SUCC 40 MG VIAL IV PUSH ×3 (06:07→22:00)
[2023-09-13] MEDS: AZITHROMYCIN 500 MG/NS 250 ML 500 MG/250 ML BAG 250 MG IVPB (06:08)
--- NOTE | 2023-09-13 08:41 | PCOTNOTE ---
Per nursing pt. continues to require continuous BiPap and is not medically appropriate for therapy services at this time. Following.
[2023-09-13] MEDS: ENOXAPARIN 40 MG/0.4 ML SYRINGE SUB-Q (08:46)
[2023-09-13] MEDS: METOPROLOL SUCCINATE EXT REL 25 MG TABCR PO (08:47)
[2023-09-13] MEDS: FUROSEMIDE INJ 40 MG/4 ML VIAL IV PUSH (08:47)
[2023-09-13] MEDS: CLOPIDOGREL BISULFATE 75 MG TABLET PO (08:47)
[2023-09-13] MEDS: ASPIRIN 81 MG ENTERIC TABLET PO (08:47)
[2023-09-13] MEDS: busPIRone HCL 5 MG TABLET PO ×2 (08:47→22:00)
[2023-09-13] MEDS: PANTOPRAZOLE 40 MG TABLET PO (08:48)
[2023-09-13] MEDS: EZETIMIBE 10 MG TABLET PO (08:48)
[2023-09-13] MEDS: FAMOTIDINE 20 MG TABLET PO (08:48)
[2023-09-13] MEDS: EMPAGLIFLOZIN 10 MG TABLET PO (08:48)
--- NOTE | 2023-09-13 11:49 | PM.PNCARD ---
Progress Note: A&P Assessment and Plan (1) Acute hypoxic respiratory failure: Code(s): J96.01 - Acute respiratory failure with hypoxia Status: Acute Assessment and Plan: Off BiPAP, on supplemental O2 per nasal cannula. Wean as tolerated. (2) Acute pneumonia: Code(s): J18.9 - Pneumonia, unspecified organism Status: Acute Assessment and Plan: On antibiotics as per Hospitalist. (3) Congestive heart failure: Code(s): I50.9 - Heart failure, unspecified Status: Acute Assessment and Plan: We do not have any prior cardiac records, however, patient and family deny any history of heart failure. Records requested from [facility] but not rec'd. Echo here showed LVEF reduced at 30-35% with moderate MR. She was started on Toprol yesterday and seems to be tolerating that well. Would like to add ARNI, however, her blood pressure is soft, so will hold off for now. If blood pressure is improved tomorrow perhaps start low dose Entresto then. 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 Yee. Continue IV furosemide for now (4) Elevated troponin: Code(s): R79.89 - Other specified abnormal findings of blood chemistry Status: Acute Assessment and Plan: Mildly elevated. In the setting of acute hypoxic respirator failure, hypotension, possible CHF. Likely demand ischemia. Does not appear to be ACS. She denies any chest pain. (5) CAD (coronary artery disease): Code(s): I25.10 - Atherosclerotic heart disease of [place] coronary artery without angina pectoris Status: Acute Assessment and Plan: Reports hx of two stents placed ~6 years ago. Continue ASA, Plavix. Please obtain records from Dr. Yee's office. Subjective Date/time seen: 09/13/23 11:49 Interval history: Cardiology follow up for CHF, CMY, CAD She is feeling much better today. Off BiPAP at this point. No chest pain, palpitations, shortness of breath. Review of Systems Review of Systems: All systems reviewed & are unremarkable except as noted in HPI and below (HPI) Exam Const: General: comfortable and no acute distress HENMT: Mouth: Yes moist mucous membranes Eyes: General: appearance normal, both eyes and all related structures Sclera: sclerae normal Resp: Effort & Inspection: normal respiratory effort Auscultation: wheezes and diminished lung sounds Other: On BIPAP Cardio: Rate: regular rate Rhythm: regular rhythm Heart sounds: no murmurs Skin: General skin exam: normal color Neuro: Speech: normal speech Psych: Mental Status: mental status grossly normal Affect: normal affect Objective Data Vital Signs Vital Signs: Vital Signs - 24 hr 09/12/23 11:56 09/12/23 12:00 09/12/23 12:00 Temperature 35.9 C L Pulse Rate 95 78 Respiratory Rate 23 H Blood Pressure 101/41 L Pulse Oximetry 100 98 Oxygen Delivery BiPAP Oxygen Flow Rate Fraction of Inspired Oxygen 09/12/23 12:35 09/12/23 13:05 09/12/23 14:06 Temperature Pulse Rate 82 88 84 Respiratory Rate 20 20 Blood Pressure Pulse Oximetry 98 Oxygen Delivery BiPAP Oxygen Flow Rate Fraction of Inspired Oxygen 09/12/23 14:29 09/12/23 14:15 09/12/23 14:00 Temperature Pulse Rate 87 96 91 Respiratory Rate 20 20 Blood Pressure Pulse Oximetry 97 Oxygen Delivery High Flow Nasal Cannula Oxygen Flow Rate 10 Fraction of Inspired Oxygen 09/12/23 16:00 09/12/23 16:00 09/12/23 16:00 Temperature 36.3 C L Pulse Rate 81 93 Respiratory Rate 22 H Blood Pressure 106/63 Pulse Oximetry 96 96 Oxygen Delivery High Flow Nasal Cannula Oxygen Flow Rate 10 Fraction of Inspired Oxygen 09/12/23 18:00 09/12/23 19:25 09/12/23 20:21 Temperature 36.7 C Pulse Rate 81 92 Respiratory Rate 20 Blood Pressure 97/62 L Pulse Oximetry 98 100 Oxygen Delivery High Flow Nasal Cannula Oxygen Flow Rate 10 F
--- NOTE | 2023-09-13 16:14 | PM.IMPN ---
Progress Note: A&P Assessment and Plan (1) Acute hypoxic respiratory failure: Code(s): J96.01 - Acute respiratory failure with hypoxia Status: Acute Assessment and Plan: Patient presents with SOB and found to have acute hypoxic respiratory failure. No ABG ordered. CXR showing probably mild pulmonary edema. Consider COPD or ILD. She ultimately required BiPAP. She was started on Rocephin and Azithromycin for possible PNA. Also on DuoNeb and Solu-Medrol for COPD exacerbation. Lasix IV started. Condition has improved. Wean O2 as tolerated. (2) Congestive heart failure: Code(s): I50.9 - Heart failure, unspecified Status: Acute Assessment and Plan: Acute on chronic systolic and diastolic CHF exacerbation Imaging as above. Has a hx of CAD but not CHF. BNP of 7000 Echo showing EF 30-35%, Grade I diastolic dysfunction and moderate MR. Toprol added and tolerating. Continue diuresis as tolerated. She was hypotensive on admission but tolerating current treatment. Add Empagliflozin (3) Hypotension: Code(s): I95.9 - Hypotension, unspecified Status: Acute Assessment and Plan: SBP was in the 90's and dropped to 68/57. Solu-Medrol given with improvement of BP. Related to acute SC. Consider cardiogenic shock. Consider related to PNA. Consider PE given the hypoxia and only mild pulmonary edema but other diagnosis more likely. BP better and tolerating diuretics. Follow for now. (4) Acute pneumonia: Code(s): J18.9 - Pneumonia, unspecified organism Status: Acute Assessment and Plan: Presents with productive cough and SOB. No fevers. Lactate normal. WBC was 11K. WBC higher today but on Solu-Medrol. CXR reviewed showing probably pulmonary edema but can not exclude infection Check MRSA screen. Check sputum and Ag (5) Non-ST elevation [place] (NSTEMI): Code(s): I21.4 - Non-ST elevation (NSTEMI) myocardial infarction Status: Acute Assessment and Plan: Troponin elevated on admission (0.79) and climbed to 1.[address]-T wave changes. On ASA and Plavix. Toprol added. Continue Zetia. Allergic to statins. No wall motion abnormalities. Consider ischemic evaluation prior to discharge (6) CAD (coronary artery disease): Code(s): I25.10 - Atherosclerotic heart disease of [place] coronary artery without angina pectoris Status: Acute Assessment and Plan: History of coronary artery disease status post stent to the past x2 in the past Treatment as above Plan COPD exacerbation - patient has hx of tobacco abuse but quit now. Could have underlying COPD. No wheezing apprecaited now. Continue Solu-Medrol and bronchodilators CKD stage III - Cr normal (1.0) last year. Creatinine 1.2 on admission here. Continue to monitor with diuresis. Check renal US JAZMYNE - continue buspirone GERD - continue pepcid and PPI Hyperlipidemia - continue Zetia HTN - as above Elevated TSH - probably related to above but may have underlying hypothyroidism. FT4 normal. Would repeat labs once she is recovered. Doubt this is the cause of her HoTN. DVT prophylaxis Lovenox Code status - full Subjective Date/time seen: 09/13/23 16:14 Interval history: 78yo female with CAD and HTN here for shortness of breath. Feels much better and SOB improved. Remains on O2. Not on O2 at home. Independent at home. Does not require walker or cane. She does not have ÁNGELA. No CP or abd pain. She was having CP earlier that improved with belching. Exam Narrative: AF 97.7 102/63 90 23 96% 5L Gen - NARD Chest - bibasilar inspiratory crackles. nml RR CV - RRR S1/S2. Tele showing PVCs Abd - Soft, NT/ND, Positive BS Ext - No pedal edema Neuro - Alert and appropriate, nml RR Psych - Nml mood and affect Skin - Warm and dry Objective Data Vital Signs Vital Signs: Vital Signs - 24 hr 09/12/23 18:00 09/12/23 19:25 09/12/23 20
[2023-09-13 19:29] LABS: MRSA (PCR) NOT DETECTED (NOT DETECTE)
[2023-09-14] VITALS (25 sets, daily range): BP systolic 76–123; BP diastolic 52–72; PULSE 71–125; RESP 21–25; TEMP 35.8–36.6; O2SAT 88–100
--- NOTE | 2023-09-14 01:42 | ECG_ITS ---
SEE SCANNED COPY FOR CONFIRMED REPORT MTDD
[2023-09-14] MEDS: ONDANSETRON INJ 4 MG/2 ML VIAL (02:11)
[2023-09-14 02:24] LABS: Basophils Absolute Auto 0.1 K/mm3 (0.0-0.1); Basophils Percent Auto 0.1 % (0.2-1.2); Hematocrit 38.9 % (37.0-47.0); Hemoglobin 12.6 g/dL (12.0-15.0); Immature Granulocyte Percent A 0.9 % (0-0.5); Lymphocytes Absolute Auto 0.89 K/mm3 (0.9-3.2); Lymphocytes Percent Auto 2.7 % (18.3-44.2); Mean Corpuscular HGB Conc 32.4 g/dl (32-36); Mean Corpuscular Hemoglobin 30.5 pg (26-34); Mean Corpuscular Volume 94.2 fl (80-100); Mean Platelet Volume 10.6 fl (7.4-10.4); Monocytes Absolute Auto 0.7 K/mm3 (0.1-0.6); Neutrophils Absolute Auto 31.6 K/mm3 (1.3-6.7); Neutrophils Percent Auto 94.3 % (45.5-73.1); Platelet Count Result 391 k/mm3 (150-375); Red Blood Count 4.13 M/mm3 (4.2-5.4); Red Cell Distribution Width 13.7 % (11.5-14.5); White Blood Count 33.6 K/mm3 (4.5-10.0)
[2023-09-14 02:38] LABS: Albumin Level 4.3 g/dL (3.5-5.1); Anion Gap 12 mmol/L (4-12); Blood Urea Nitrogen 43 mg/dL (7-17); Calcium 8.5 mg/dL (8.4-10.2); Carbon Dioxide 25 mmol/L (22-30); Chloride 96 mmol/L (98-107); Estimated CRCL calculation 23 ml/min; Estimated Glomerular Filt Rate 31; Glucose 162 mg/dL (65-110); Magnesium 2.6 mg/dL (1.6-2.3); Potassium 4.3 mmol/L (3.4-5.0); Sodium 133 mmol/L (137-145)
[2023-09-14] MEDS: NITROGLYCERIN SL 0.4 MG TABLET SUBLINGUAL ×4 (02:38→05:47)
[2023-09-14] MEDS: LEVALBUTEROL NEB 1.25 MG/3 ML INHALATION ×2 (02:44→08:20)
[2023-09-14] MEDS: IPRATROPIUM BR 0.02% INH SOLN 0.5 MG/2.5 ML VIAL INHALATION ×2 (02:45→08:20)
[2023-09-14] MEDS: HEPARIN SOD/D5W 100 UNITS/ML 25,000 UNITS/250 ML BAG 10 UNITS IV CONT (02:51)
[2023-09-14] MEDS: HEPARIN SODIUM 5,000 UNITS/ML VIAL 5000 UNITS IV PUSH (02:51)
[2023-09-14] MEDS: METOPROLOL TARTRATE INJ 5 MG/5 ML VIAL IV PUSH (02:51)
[2023-09-14 03:31] LABS: INR 1.3; Prothrombin Time 16.4 Seconds (11.1-14.7)
[2023-09-14 03:48] LABS: Partial Thromboplastin Time > 200.0 Seconds (22.3-36.8)
--- NOTE | 2023-09-14 04:09 | PM.EVENT ---
Event Note Event Note Event Note: 09/14/2023 at 02:15 I was on the floor seeing another patient when nursing staff called me when the patient had a change in her rhythm. She was transiently tachycardic. Just before that the patient had complained of not feeling right. She was having some pain in her bilateral posterior rib cage into her back, and was unable to tolerate her BiPAP. She did not feel better with any position changes. Her pain was not reproducible. She has known coronary artery disease. Shortly thereafter the patient began having nausea and vomiting. a stat EKG was performed which demonstrated new ST depression in V3 with markedly increased ST depression in V4 V5. The patient's blood pressures were mid 90 systolic. I went to evaluate the patient she was mildly diaphoretic and was complaining of discomfort in her anterior neck that was a pressure-like sensation. She was still having her chronic pain in the back of her neck that she relates to her BiPAP mask. She also reported that she has been having pain in her thoracic region of her back on and off for a couple of hours that she thought was due to laying in the bed on the surveillance system monitor. She reported that her breathing felt stable. When the patient's pulse ox was appropriately position she was maintaining her oxygen saturations without any increased work of breathing from baseline. While I was at the bedside the patient began having vomiting. A stat troponin was ordered. Initially it was informed patient with on Lovenox. Turned out the patient was on DVT prophylaxis dosing of Lovenox. given the patient's borderline low blood pressures as an not feel comfortable giving patient pain meds or nitroglycerin without cardiology input. Nursing staff contacted telesales professional who recommended IV Lopressor and nitroglycerin. The patient was also been started on a heparin drip. Shortly thereafter patient's symptoms improved. Patient's blood pressures initially when nursing went to administer IV Lopressor dropped to the 70s briefly but approximately 5 minutes later blood pressures were in the low 100 systolic. After IV Lopressor and nitroglycerin the patient's blood pressures had actually went up to the 110s. Patient's troponin did Come back elevated at 5.1 up from 1.87 on the . Serial troponins have been ordered. 30 minutes was spent in critical care activities. Due to a high probability of clinically significant, life threatening deterioration, the patient required my highest level of preparedness to intervene emergently and I personally spent this critical care time directly and personally managing the patient. This critical care time included obtaining a history; examining the patient; pulse oximetry; ordering and review of studies; arranging urgent treatment with development of a management plan; evaluation of patient's response to treatment; frequent reassessment; and discussions with other providers. It was exclusive of separately billable procedures and treating other patients and teaching time. Please see Assessment and Plan section and the rest of the note for further information on patient assessment and treatment.
--- NOTE | 2023-09-14 06:13 | ECG_ITS ---
SEE SCANNED COPY FOR CONFIRMED REPORT MTDD
[2023-09-14] MEDS: NITROGLYCERIN OINTMENT 1 INCH DOSE TRANSDERM ×2 (06:29→12:55)
[2023-09-14] MEDS: AZITHROMYCIN 500 MG/NS 250 ML 500 MG/250 ML BAG 250 MG IVPB (06:52)
[2023-09-14] MEDS: methylPREDNISolone SOD SUCC 40 MG VIAL IV PUSH (06:52)
--- NOTE | 2023-09-14 08:23 | PM.PNCARD ---
Progress Note: A&P Assessment and Plan (1) Non-ST elevation [place] (NSTEMI): Code(s): I21.4 - Non-ST elevation (NSTEMI) myocardial infarction Status: Acute (2) Congestive heart failure: Code(s): I50.9 - Heart failure, unspecified Status: Acute (3) Elevated troponin: Code(s): R79.89 - Other specified abnormal findings of blood chemistry Status: Acute (4) CAD (coronary artery disease): Code(s): I25.10 - Atherosclerotic heart disease of [place] coronary artery without angina pectoris Status: Acute Plan 78-year-old lady with known ischemic heart disease newly identified left ventricular systolic dysfunction admitted 2 days ago with shortness of breath. That has been improving with diuresis and medical treatment. Last evening the patient has had 2 episodes of what appear to be ischemic chest pain last night with significantly worsening precordial ST segment depression during the symptoms. Troponin has risen to just over 5. In this setting she clearly has acute coronary syndrome/non ST elevation [place] and should undergo follow-up catheterization. S the patient is currently free of chest pain and is established with physicians elsewhere it is the recommendation/plan to arrange for transfer to [facility] where she can be evaluated by her a physicians of her established practice, undergo evaluation and revascularization. If she becomes overtly unstable obviously catheterization would occur at this hospital emergently. Anderson Treviño MD [facility] Subjective Date/time seen: Date of service: 09/14/23 08:23 Interval history: Follow-up visit in this 78-year-old lady with: Coronary artery disease with previous percutaneous revascularization, details of this are unknown to us at this hospital. Also now found to have left ventricular systolic dysfunction, chronic lung disease with chronic, ongoing cigarette smoking. Patient is free of chest pain at this time however she had 2 episodes of left-sided retrosternal chest pain radiating into left shoulder last night. Associated with this was significant precordial ST segment depression. Troponin level also has risen significantly as mentioned in the labs. She is comfortable at this time and visiting with her son Exam Const: General: comfortable Other: Elderly white female appears to be relatively comfortable although was wearing face mask oxygen at this time HENMT: Mouth: Yes moist mucous membranes Eyes: Sclera: sclerae normal Neck: Neck: supple Resp: Effort & Inspection: normal respiratory effort Other: Scattered central rhonchi noted no wheezing currently no pulmonary rales Cardio: Rate: regular rate Rhythm: regular rhythm GI: GI Palp: Yes Soft to palpation Auscultation: normal bowel sounds Urinary Catheter: Urinary Catheter: patent and draining Skin: General skin exam: normal color Neuro: Other: Alert and oriented x3 Extrem: General: normal to inspection Other: Distal pulses are palpable but somewhat diminished Objective Data Vital Signs Vital Signs: Vital Signs - 24 hr 09/13/23 08:47 09/13/23 08:58 09/13/23 10:00 Temperature Pulse Rate 96 104 H 91 Respiratory Rate 23 H Blood Pressure Pulse Oximetry 94 Oxygen Delivery BiPAP Oxygen Flow Rate Fraction of Inspired Oxygen 09/13/23 11:21 09/13/23 11:51 09/13/23 13:42 Temperature 36.5 C Pulse Rate 88 Respiratory Rate 24 H Blood Pressure 102/63 Pulse Oximetry 97 97 97 Oxygen Delivery High Flow Nasal Cannula High Flow Nasal Cannula Oxygen Flow Rate 7 7 Fraction of Inspired Oxygen 09/13/23 13:42 09/13/23 13:53 09/13/23 14:38 Temperature Pulse Rate 90 90 Respiratory Rate 23 H 23 H Blood Pressure Pulse Oximetry 96 Oxygen Delivery High Flow Nasal Cannula Oxygen Flow Rate 5 Fraction of Inspired Oxygen 09/13/23 16:00 09/13/23 16:00 09/13/23 12:00 Temperature
[2023-09-14] MEDS: busPIRone HCL 5 MG TABLET PO (09:33)
[2023-09-14] MEDS: FUROSEMIDE INJ 40 MG/4 ML VIAL IV PUSH (09:33)
[2023-09-14] MEDS: EZETIMIBE 10 MG TABLET PO (09:33)
[2023-09-14] MEDS: METOPROLOL SUCCINATE EXT REL 25 MG TABCR PO (09:33)
[2023-09-14] MEDS: EMPAGLIFLOZIN 10 MG TABLET PO (09:33)
[2023-09-14] MEDS: ASPIRIN 81 MG ENTERIC TABLET PO (09:33)
[2023-09-14] MEDS: CLOPIDOGREL BISULFATE 75 MG TABLET PO (09:33)
[2023-09-14] MEDS: PANTOPRAZOLE 40 MG TABLET PO (09:34)
[2023-09-14] MEDS: ONDANSETRON INJ 4 MG/2 ML VIAL IV PUSH (09:36)
[2023-09-14 09:37] LABS: Partial Thromboplastin Time 103.5 Seconds (22.3-36.8)
[2023-09-14] MEDS: FAMOTIDINE 20 MG TABLET PO (09:38)
--- NOTE | 2023-09-14 10:16 | PC.NURSE ---
Spoke with [facility] transfer center [place]. Accepted to [facility] step down floor, accepting Dr. Henry. Face sheet sent to [phone]
--- NOTE | 2023-09-14 10:47 | PM.TDS ---
Transfer Discharge Sum: Prov Provider Date of admission: 09/12/23 06:05 Primary care physician: Nathan Brink, Admitting clinician: Fareed Thapa MD Consults: 09/12/23 06:06 Consult to Physician Routine Comment: Called Alicia Spence and notified her of consult Consulting Provider: Jhon Lopez Reason for consultation: Pulmonary edema, NSTEMI Has provider been notified: Yes DS: Admitting Diagnosis Discharge Date 09/14/23 Admitting Diagnosis Shortness of breath DS: Discharge Diagnosis Discharge Diagnosis (1) Unstable angina: Code(s): I20.0 - Unstable angina Status: Acute (2) Non-ST elevation [place] (NSTEMI): Code(s): I21.4 - Non-ST elevation (NSTEMI) myocardial infarction Status: Acute (3) Acute hypoxic respiratory failure: Code(s): J96.01 - Acute respiratory failure with hypoxia Status: Acute (4) Congestive heart failure: Code(s): I50.9 - Heart failure, unspecified Status: Acute (5) Hypotension: Code(s): I95.9 - Hypotension, unspecified Status: Acute (6) Acute pneumonia: Code(s): J18.9 - Pneumonia, unspecified organism Status: Acute (7) CAD (coronary artery disease): Code(s): I25.10 - Atherosclerotic heart disease of [place] coronary artery without angina pectoris Status: Acute Transfer Discharge Sum: Med Medications Active and Home Medications: Home Medications aspirin 81 mg tablet 81 mg PO DAILY 08/19/20 [History Confirmed 09/12/23] clopidogrel 75 mg tablet (Plavix) 75 mg PO DAILY 08/19/20 [History Confirmed 09/12/23] ezetimibe 10 mg tablet (Zetia) 10 mg PO DAILY 08/19/20 [History Confirmed 09/12/23] nifedipine 30 mg tablet,extended release 30 mg PO DAILY 08/19/20 [History Confirmed 09/12/23] buspirone 5 mg tablet 2 mg PO QAM AND QHS 09/12/23 [History Confirmed 09/12/23] ergocalciferol (vitamin D2) 1,250 mcg (50,000 unit) capsule 09/12/23 [History] famotidine 20 mg tablet 20 mg PO DAILY 09/12/23 [History Confirmed 09/12/23] Active Medications Acetaminophen (Acetaminophen 325 Mg Tablet) 650 mg PO Q4H PRN PRN Reason: Mild Pain (1-3) or Fever Last Admin: 09/13/23 22:00 Dose: 650 mg Aspirin (Aspirin 81 Mg Enteric Tablet) 81 mg PO QAM [facility] Last Admin: 09/14/23 09:33 Dose: 81 mg Buspirone HCl (Buspirone Hcl 5 Mg Tablet) 5 mg PO Q12HR [facility] Last Admin: 09/14/23 09:33 Dose: 5 mg Clopidogrel Bisulfate (Clopidogrel Bisulfate 75 Mg Tablet) 75 mg PO DAILY [facility] Last Admin: 09/14/23 09:33 Dose: 75 mg Ezetimibe (Ezetimibe 10 Mg Tablet) 10 mg PO DAILY [facility] Last Admin: 09/14/23 09:33 Dose: 10 mg Empagliflozin (Empagliflozin 10 Mg Tablet) 10 mg PO DAILY [facility] Last Admin: 09/14/23 09:33 Dose: 10 mg Famotidine (Famotidine 20 Mg Tablet) 20 mg PO DAILY [facility] Last Admin: 09/14/23 09:38 Dose: 20 mg Furosemide (Furosemide Inj 40 Mg/4 Ml Vial) 40 mg IV PUSH DAILY [facility] Last Admin: 09/14/23 09:33 Dose: 40 mg Heparin Sodium (Porcine) (Heparin Sodium 5,000 Units/Ml Vial) 4,000 units IV PUSH PRN PRN PRN Reason: aPTT less than 55 seconds Heparin Sodium (Porcine) (Heparin Sodium 5,000 Units/Ml Vial) 2,500 units IV PUSH PRN PRN PRN Reason: aPTT 55 - 70 seconds Ceftriaxone Sodium (Rocephin 1 Gm/Ns 50 Ml) 1 gm in 50 mls @ 100 mls/hr IVPB Q24H [facility] Last Admin: 09/14/23 06:51 Dose: 100 mls/hr Azithromycin (Zithromax) 500 mg in 250 mls @ 250 mls/hr IVPB Q24H [facility] Last Admin: 09/14/23 06:52 Dose: 250 mls/hr Heparin Sodium/Dextrose (Heparin Sodium/D5w 100 Units/Ml) 25,000 units in 250 mls @ 10 mls/hr IV CONT .Q24H [facility]; Protocol Last Admin: 09/14/23 02:51 Dose: 1,000 units/hr, 10 mls/hr Ipratropium [place] (Ipratropium Br 0.02% Inh Soln 0.5 Mg/2.5 Ml Vial) 0.5 mg INHALATION Q6HRT [facility] Last Admin: 09/14/23 08:20 Dose: 0.5 mg Levalbuterol HCl (Levalbuterol Neb 1.25 Mg/3 Ml) 1.25 mg INHALATION Q6HRT [facility] Last Admin: 09/14/23 08:20 Dose: 1.25 mg Methylprednisolone [place]
--- NOTE | 2023-09-17 07:39 | PC.NURSE ---
Sputum cx is negative. Dr. Monico robertson.
[2023-09-17 16:17] LABS: Pneumococcal Antigen Urine NOT DETECTED
[2023-09-18 01:54] LABS: Legionella pneumophila Ag Ur NOT DETECTED
--- NOTE | 2023-09-18 09:49 | PC.NURSE ---
Blood cx is negative. Urine Legionella and pneumococcal are both not detected. Dr. Monico robertson.
== END 2023-09-14 13:51 | disposition short-term general hospital (02) | DRG 280 ==
LOC: ANHED 05:37 → ANHIMU 06:54
PROVIDERS: Internal Medicine; Specialist; Admitting Provider Internal Medicine; Emergency Provider Emergency Medicine; PCP Internal Medicine; Visit Provider Internal Medicine
DX: I13.0 Hypertensive heart and chronic kidney disease with heart failure and stage 1 through stage 4 chronic kidney disease, or unspecified chronic kidney disease (principal); I50.43 Acute on chronic combined systolic (congestive) and diastolic (congestive) heart failure; I21.4 Non-ST elevation (NSTEMI) myocardial infarction; J18.9 Pneumonia, unspecified organism; J96.01 Acute respiratory failure with hypoxia; J44.0 Chronic obstructive pulmonary disease with (acute) lower respiratory infection; J44.1 Chronic obstructive pulmonary disease with (acute) exacerbation; I21.A1 Myocardial infarction type 2; I95.9 Hypotension, unspecified; I25.10 Atherosclerotic heart disease of native coronary artery without angina pectoris; N18.32 Chronic kidney disease, stage 3b; E78.5 Hyperlipidemia, unspecified; K21.9 Gastro-esophageal reflux disease without esophagitis; F41.9 Anxiety disorder, unspecified; Z20.822 Contact with and (suspected) exposure to COVID-19; Z87.891 Personal history of nicotine dependence; Z79.82 Long term (current) use of aspirin; Z79.02 Long term (current) use of antithrombotics/antiplatelets; Z95.5 Presence of coronary angioplasty implant and graft
CPT/HCPCS: 36415; 71045; 76775; 80053; 80069; 83605; 83735; 83880; 84439; 84443; 84480; 84484; 85025; 85610; 85730; 87040; 87070; 87205; 87449; 87637; 87641; 87899; 93005; 94002; 94003; 94640; 96374; 99285; A9270; C8929; J0456; J0696; J1644; J1650; J1940; J2405; J2919; J7030; J7050; Q9957